=== PATIENT | female | born 1985 | race African-American/Black ===

== ENCOUNTER 2022-06-18 07:55 | Emergency (ER) | payer OTHER ==
[~2022-06-18] VITALS: Ht 167.6 cm; Wt 91.0 kg
[2022-06-18 09:03] LABS: BASOPHILS % 0.4 % (0.0-2.0); EOSINOPHILS % 7.5 % (0.0-5.0); HEMATOCRIT. 40.6 % (36.0-48.0); HEMOGLOBIN. 13.6 g/dL (12.0-16.0); LYMPHOCYTES % 19.4 % (20.0-50.0); MEAN CORPUSCULAR HEMOGLOBIN 27.4 pg (28.0-32.0); MEAN PLATELET VOLUME 9.1 fl (7.4-10.4); NEUTROPHILS % 64.7 % (40.0-76.0); PLATELET 297 x1000/uL (130-400); RED BLOOD CELL COUNT 4.95 mill/uL (4.2-5.4); RED CELL DISTRIBUTION WIDTH 14.1 % (11.6-14.6)
[2022-06-18 09:09] LABS: CHLORIDE 105 mEq/L (98-107)
[2022-06-18 09:21] LABS: HCG SCREEN NEGATIVE
[2022-06-18] MEDS: KETOROLAC 30MG/ML VIAL IM NR ×3 (09:30→10:37)
[2022-06-18 10:00] LABS: CLARITY URINE CLEAR (CLEAR); COLOR URINE YELLOW (YELLOW); KETONES URINE TRACE (NEGATIVE); LEUKOCYTE ESTERASE URINE NEGATIVE (NEGATIVE); NITRITE URINE NEGATIVE (NEGATIVE); OCCULT BLOOD URINE NEGATIVE (NEGATIVE); PROTEIN URINE NEGATIVE (NEGATIVE); SPECIFIC GRAVITY URINE 1.031 (1.005-1.030)
[2022-06-18] MEDS ORDERED: T3 PO ×2 (11:35→11:36)
[2022-06-18 11:43] VITALS: BP 119/71
== END 2022-06-18 11:51 | disposition home or self-care (01) ==
LOC: ER 07:55
DX: D25.9 Leiomyoma of uterus, unspecified (principal); Z86.39 Personal history of other endocrine, nutritional and metabolic disease
CPT/HCPCS: 36415; 76830; 76856; 80053; 81003; 84703; 85025; 96372; 99285; J1885; Z7610

== ENCOUNTER 2023-02-04 07:00 | Emergency (ER) | payer OTHER ==
[~2023-02-04] VITALS: Ht 167.6 cm; Wt 92.0 kg
[~2023-02-04 07:00] MED LIST: T3 PO
[2023-02-04 07:55] VITALS: BP 136/86; O2SAT 100
[2023-02-04 08:25] LABS: CLARITY URINE CLEAR (CLEAR); COLOR URINE YELLOW (YELLOW); GLUCOSE URINE NEGATIVE (NEGATIVE); KETONES URINE NEGATIVE (NEGATIVE); LEUKOCYTE ESTERASE URINE NEGATIVE (NEGATIVE); NITRITE URINE NEGATIVE (NEGATIVE); OCCULT BLOOD URINE 1+ (NEGATIVE); PH URINE 8.5 (4.5-8.0); PROTEIN URINE TRACE (NEGATIVE); SPECIFIC GRAVITY URINE 1.021 (1.005-1.030)
[2023-02-04 08:27] LABS: BACTERIA URINE NONE SEEN; SQUAMOUS EPITHELIAL CELL URINE NONE SEEN /lpf (RARE/1+); WBC URINE NONE SEEN /hpf (0-2); YEAST URINE NONE SEEN
[2023-02-04 08:42] LABS: MUCUS URINE 2+ /lpf (< = 2+)
[2023-02-04 08:43] LABS: RBC URINE 0-2 /hpf (0-2)
[2023-02-04 08:44] LABS: BASOPHILS % 1.9 % (0.0-2.0); DIFFERENTIAL COMMENT 0; EOSINOPHILS % 12.3 % (0.0-5.0); HEMATOCRIT. 39.4 % (36.0-48.0); HEMOGLOBIN. 13.1 g/dL (12.0-16.0); LYMPHOCYTES % 28.7 % (20.0-50.0); MEAN CORPUSCULAR HEMOGLOBIN 26.2 pg (28.0-32.0); MEAN CORPUSCULAR HGB CONC 33.3 g/dL (31.0-37.0); MEAN CORPUSCULAR VOLUME 78.7 fL (81.0-99.0); MEAN PLATELET VOLUME 8.9 fl (7.4-10.4); MONOCYTES % 12.6 % (2.0-8.0); NEUTROPHILS % 44.5 % (40.0-76.0); PLATELET 313 x1000/uL (130-400); RED BLOOD CELL COUNT 5.01 mill/uL (4.2-5.4); RED CELL DISTRIBUTION WIDTH 16.3 % (11.6-14.6); WHITE BLOOD COUNT 3.5 x1000/uL (4.5-11.0)
[2023-02-04] MEDS ORDERED: ACETAMINOPHEN 325MG TABLET PO ONE (09:30)
[2023-02-04] MEDS ORDERED: LACTATED RINGERS 1,000 ML IV SCH (09:30)
[2023-02-04] MEDS ORDERED: METOCLOPRAMIDE HCL 10MG/2ML VIAL IV ONE (09:30)
[2023-02-04 10:04] LABS: HCG SCREEN NEGATIVE
[2023-02-04 10:10] LABS: ALANINE AMINOTRANSFERASE 15 IU/L (10-49); ALBUMIN 4.1 g/dL (3.2-4.8); ASPARTATE AMINOTRANSFERASE 23 IU/L (<34); BILIRUBIN TOTAL 0.4 mg/dL (0.1-1.0); CARBON DIOXIDE 27 mEq/L (21-32); CHLORIDE 106 mEq/L (98-107); CREATININE 0.6 mg/dL (0.6-1.0); GLUCOSE 88 mg/dL (70-105); POTASSIUM 3.9 mEq/L (3.5-5.1); PROTEIN TOTAL 7.7 g/dL (6.0-8.3); SODIUM 137 mEq/L (136-145); UREA NITROGEN BLOOD 5 mg/dL (9-23)
[2023-02-04 13:02] VITALS: PULSE 75; RESP 17; TEMP 98.9
== END 2023-02-04 13:03 | disposition home or self-care (01) ==
LOC: ER 07:00
DX: R51.9 Headache, unspecified (principal); R11.2 Nausea with vomiting, unspecified; R10.30 Lower abdominal pain, unspecified; D25.9 Leiomyoma of uterus, unspecified; D64.9 Anemia, unspecified; Z98.890 Other specified postprocedural states
CPT/HCPCS: 80053; 81003; 81025; 84703; 83690; 85025; 36415; 70450; 93976; 76830; 76856; 96361; 96374; 99285; J2765; Z7610 ×2